=== PATIENT | female | born 1960 | race Caucasian/White ===

== ENCOUNTER → 2017-06-04 | Outpatient (CLI) | payer OTHER ==
--- NOTE | 2017-06-04 11:36 | RAD ---
Indication chronic pain. AP and lateral views of the left knee were obtained. Bony mineralization appears normal. There is some mild patellofemoral narrowing. Significant narrowing of the medial or lateral joint space compartment is not seen. A small osteophyte is noted off the lateral tibial plateau. IMPRESSION: Minimal degenerative change involving the left knee
--- NOTE | 2017-06-04 11:38 | RAD ---
Indication left hip pain. AP and frog leg views of the left hip were obtained. There is small lucency involving the left ischium, at the symphysis, probably incidental. An acute bony finding is not seen. Significant degenerative changes are not apparent on plain films. IMPRESSION: No acute or significant finding seen involving the left hip on plain films
--- NOTE | 2017-06-04 16:15 | RAD ---
Lumbar spine, 3 views, 06/04/2017: History: Back pain, disc bulge There is a mild lumbar scoliosis. The lumbar vertebral heights are well-maintained. There is moderate disc space narrowing at T12-L1, L1-2 and L2-3 with moderate marginal spurring. There are moderate degenerative changes involving scattered facet joints. There is a mild reverse spondylolisthesis at L2-3. No acute fracture is identified. Minimal aortic calcific plaquing is present. IMPRESSION: 1. Moderate multilevel degenerative change. 2. Mild reverse spondylolisthesis at L2-3 due to facet joint arthropathy.
== END | disposition home or self-care (01) ==
LOC: RAD 09:00
PROVIDERS: ATTEND Surgery
DX: M17.12 Unilateral primary osteoarthritis, left knee (principal); M43.16 Spondylolisthesis, lumbar region; M51.26 Other intervertebral disc displacement, lumbar region
CPT/HCPCS: 72100; 73502; 73560